=== PATIENT | female | born 1990 | race Caucasian/White ===

== ENCOUNTER 2020-07-20 19:34 | Inpatient (IN) | payer OTHER ==
[~2020-07-20] VITALS: Ht 152.4 cm; Wt 83.2 kg
--- NOTE | 2020-07-20 19:35 | NUR ---
ESPINOZA LORENZO presented to unit via wheelchair from ED, accompanied by s.o., with c/o LABOR. ESPINOZA LORENZO weighed, gowned, voided, and to bed. EFHM and TOCO applied, VS taken. ESPINOZA LORENZO oriented to bed controls, call light, TV, heat, and A/C controls.
--- NOTE | 2020-07-20 19:40 | NUR ---
Pt in BR and c/o urge to push, pt assisted back to bed and SVE performed, no cervix present with bulging membranes. 194 Dr Lopez called, and enroute. See labor notes.
[2020-07-20] MEDS ORDERED: D5 LR IV SOLUTION 1,000 ML IV ONE (19:46)
[2020-07-20] MEDS ORDERED: LIDOCAINE/EPI 2% 1:200,00 (XYLOCAINE) 10 ML VIAL ONE (19:58)
[2020-07-20] MEDS ORDERED: OXYTOCIN PRE-MIX DRIP 500 ML IV ONE ×2 (19:58→22:22)
[2020-07-20] MEDS ORDERED: D5 LR IV SOLUTION 1,000 ML IV SCH (20:30)
[2020-07-20 20:34] LABS: BASOPHILS % (AUTO) 0 % (0-10); EOSINOPHILS # (AUTO) 0.1 10^3/uL (0.0-0.3); EOSINOPHILS % (AUTO) 1 % (0-10); HEMATOCRIT 36 % (35-52); HEMOGLOBIN 12.9 g/dL (11.5-16.0); LYMPHOCYTES # (AUTO) 1.7 10^3/uL (1.0-4.0); LYMPHOCYTES % (AUTO) 16 % (12-44); MEAN CORPUSCULAR HEMOGLOBIN 32 pg (25-34); MEAN CORPUSCULAR HGB CONC 36 g/dL (32-36); MEAN CORPUSCULAR VOLUME 90 fL (80-99); MEAN PLATELET VOLUME 9.8 fL (9.0-12.2); MONOCYTES # (AUTO) 0.8 10^3/uL (0.0-1.0); MONOCYTES % (AUTO) 8 % (0-12); NEUTROPHILS # (AUTO) 7.7 10^3/uL (1.8-7.8); NEUTROPHILS % (AUTO) 75 % (42-75); PLATELET COUNT 233 10^3/uL (130-400); WHITE BLOOD COUNT 10.3 10^3/uL (4.3-11.0)
[2020-07-20 21:15] VITALS: BP 104/60
[2020-07-20] MEDS ORDERED: metroNIDAZOLE 500MG/100ML IVPB 100 ML ONE (21:57)
[2020-07-20] MEDS ORDERED: CITRIC ACID/SOB CIT (BICITRA) 30 ML UDC ONE (21:57)
[2020-07-20] MEDS ORDERED: METOCLOPRAMIDE INJ 10 MG/2 ML (REGLAN) ONE (21:57)
[2020-07-20] MEDS ORDERED: ceFAZolin 2 GM IV Premixed 50 ML ONE (21:57)
[2020-07-20] MEDS ORDERED: FAMOTIDINE 20MG/2ML IV (PEPCID) ONE (21:57)
[2020-07-20] MEDS ORDERED: CATHETER FLUSH 10 ML SYR IV SCH (22:00)
[2020-07-20] MEDS ORDERED: TERBUTALINE INJ 1 MG/ML (BRETHINE) AMP ONE (22:01)
[2020-07-20] MEDS ORDERED: ceFAZolin INJECTION 2,000 MG in WATER (STERILE) FOR INJECTION 10 ML IV ONE (22:15)
[2020-07-20] MEDS ORDERED: OXYTOCIN PRE-MIX DRIP 1,000 ML IV ONE (22:15)
[2020-07-20] MEDS ORDERED: metroNIDAZOLE 500MG/100ML IVPB 100 ML IV ONE (22:15)
[2020-07-20] MEDS ORDERED: fentaNYL INJECTION 100 MCG/2 ML AMP ONE (22:15)
--- NOTE | 2020-07-20 22:20 | History & Physical ---
History and Physical Date Seen by Provider: Jul 20, 2020 Time Seen by Provider: 22:15 This patient is a 29-year-old 2 para 1 white female who was admitted this evening in labor. She was greater than 7 cm dilated at the time of admission. Shortly thereafter she was completely dilated. She felt a strong urge to push. Amniotomy was performed and patient pushed for now about an hour and a half the presenting part is the vertex but and a right occiput transverse position and seems to be now complicated with a deep transverse arrest. She has been able to calm please no significant descent in spite of very aggressive pushing. Patient has pushing right lateral left lateral and all 4 position as well to no good effect. Patient is a point where she feels she can no longer push the pain is too intense up on her pubic bone. Decision was made to proceed with delivery. Patient does report recent onset of URI symptoms. 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 She is currently being treated as a PUI. She did have a negative rapid swab on this date This patient's has been uncomplicated and her GBS culture was negative Allergies are none Medications are vitamins HEENT exam is normal Neck is supple no lymphadenopathy no thyromegaly Abdomen is gravid soft nontender nondistended Extremities show no clubbing or cyanosis. There is no Homans' sign. Pelvic exam currently shows a cervix completely dilated 100% effaced presenting part is vertex with a ROT position at 0 to -1 station. Lab work is as follows Laboratory Tests 07/20/20 20:00 Assessment and plan term at 38-4/7 weeks gestation admitted in advanced labor. Patient has pushed for an hour and a half feels she can no longer push and has made absolutely no progress in the way of descent the entire time she been pushing. Surgery crew is in route and we will proceed with delivery patient understands and is in agreement with this plan 38-4/7 weeks gestation admitted in advanced labor Allergies and Home Medications Allergies Coded Allergies: No Known Drug Allergies (Unverified , 07/20/20) Patient Home Medication List Home Medication List Reviewed: Yes HARINDER MALDONADO MD Jul 20, 2020 22:20
[2020-07-20] MEDS ORDERED: KETOROLAC 30 MG/ML VIAL ONE (22:22)
[2020-07-20] MEDS ORDERED: MEPERIDINE (DEMEROL) INJ 50 MG/ML ONE (22:58)
[2020-07-20 23:22] VITALS: BP 108/62
[2020-07-20 23:37] VITALS: BP 115/70
[2020-07-20] MEDS ORDERED: ONDANSETRON 4 MG/2 ML (SDV) Z0FRAN ONE (23:39)
[2020-07-20] MEDS ORDERED: BUPIVACAINE 0.5% 30 ML (SENSORCAINE) VIAL ONE (23:39)
[2020-07-20] MEDS ORDERED: ONDANSETRON 4 MG/2 ML (SDV) Z0FRAN IV PRN (23:45)
[2020-07-20] MEDS ORDERED: NALOXONE 0.4 MG/ML 1 ML (NARCAN) VIAL IV PRN (23:45)
[2020-07-20] MEDS ORDERED: diphenhydrAMINE 50 MG/ML INJ (BENADRYL) IV PRN (23:45)
[2020-07-20 23:52] VITALS: BP 109/72
[2020-07-20 23:54] VITALS: BP 115/70
[2020-07-20] MEDS: KETOROLAC 30 MG/ML VIAL IVP SCH (23:55)
[2020-07-21] VITALS (8 sets, daily range): BP systolic 91–119; BP diastolic 55–78
[2020-07-21] MEDS ORDERED: ONDANSETRON 4 MG/2 ML (SDV) Z0FRAN IVP PRN
[2020-07-21] MEDS ORDERED: D5 LR IV SOLUTION 1,000 ML IV SCH
[2020-07-21] MEDS ORDERED: MEASLES,MUMPS,RUBELLA 1 EA INJ SC ONE
[2020-07-21] MEDS ORDERED: fentaNYL INJECTION 100 MCG/2 ML AMP IVP PRN
[2020-07-21] MEDS ORDERED: TETANUS,DIPTH,PERTUSS P/F (BOOSTRIX) 0.5 ML VIAL IM ONE
--- NOTE | 2020-07-21 00:22 | NUR ---
Pt to PP unit via bed from recovery (care from this rn remains the same) oriented to call system and surroundings, needs denied, bilat calf scds on and pumping, water supplied. will cont to monitor.
--- NOTE | 2020-07-21 00:39 | OPERATIVE REPORT ---
DATE OF SERVICE: 07/20/2020 PREOPERATIVE DIAGNOSIS: Term at 38+ weeks' gestation in labor with failure to progress due to deep transverse arrest. POSTOPERATIVE DIAGNOSIS: Term at 38+ weeks' gestation in labor with failure to progress due to deep transverse arrest. OPERATIVE PROCEDURE: Primary low transverse delivery of a viable female with Apgars of 8 and 9 at 1 and 5 minutes respectively, weight of 8 pounds. Cord blood gas of 7.16 and a time of 2253. OPERATIVE DESCRIPTION: With the patient in supine position under satisfactory spinal analgesia, she was prepped and draped in the usual fashion for abdominal surgery. Ozuna catheter was placed in the urinary bladder. Pfannenstiel incision was made through skin with scalpel, the patient's abdomen entered in the usual manner. Bladder retractor was placed in position. Clean scalpel was used to make a 4 cm hysterotomy incision transversely across the lower uterine segment that was extended bluntly and then a vigorous viable female was delivered via the uterine incision from a deep transverse position with a left occiput transverse. The was bulb suctioned on delivery of the head and again on completion of delivery. The umbilical cord when pulseless was doubly clamped and cut and the infant passed to the pediatric nurse in attendance for delivery. Cord bloods were obtained. The placenta delivered spontaneously Butcher. It was normal with a 3-vessel cord. The uterus was exteriorized and to wipe clean with a wet laparotomy sponge. Uterine incision closed with running locked suture of 2-0 Vicryl. Hemostasis was complete. The uterus was returned to abdominal cavity. All blood clot and debris removed from the abdominal cavity. Sponge and needle counts correct and hemostasis assured. Anterior parietal peritoneum was closed with running suture of 2-0 Vicryl. Rectus muscles were closed with that suture as well. The rectus fascia was closed with 2-0 Vicryl, subcutaneous tissue was closed with 2-0 Vicryl and the skin was stapled. Sponge and needle counts were correct on completion of the procedure. Blood loss was around 500 mL. The patient tolerated the procedure well and was transferred to recovery room in stable condition. The had remained with the mom. Job ID: [id number] DocumentID: [id number] Dictated Date: 07/20/2020 23:27:58 Finishing Frame Runner Date: 07/21/2020 00:38:37 Dictated By: HARINDER MALDONADO MD
[2020-07-21] MEDS ORDERED: METOCLOPRAMIDE INJ 10 MG/2 ML (REGLAN) IV ONE (01:30)
[2020-07-21] MEDS ORDERED: CITRIC ACID/SOB CIT (BICITRA) 30 ML UDC PO ONE (01:30)
[2020-07-21] MEDS ORDERED: FAMOTIDINE 20MG/2ML IV (PEPCID) IV ONE (01:30)
[2020-07-21] MEDS ORDERED: OXYTOCIN PRE-MIX DRIP 500 ML IV SCH ×2 (01:45)
--- NOTE | 2020-07-21 02:00 | NUR ---
Report from Luis Tan RN.
[2020-07-21] MEDS: KETOROLAC 30 MG/ML VIAL IVP SCH (05:32)
--- NOTE | 2020-07-21 05:40 | NUR ---
Pt ambulates to bathroom with + void, no s/s of distress. Moderate rubra lochia, no clots expressed. IV dc'd per dr order. Dressing removed per order, incision JOSSUE with moi, no bleeding or drainage.
--- NOTE | 2020-07-21 07:21 | Anesthesia-Regional Post-Op ---
Regional Patient Condition Mental Status: Alert, Oriented x3 Circulation: Same as Pre-Op Headache: Absent Sensation: Full Recovery Motor Block: Absent Post Op Complications Complications None Follow Up Care/Instructions Patient Instructions None needed. Anesthesia/Patient Condition Patient is doing well, no complaints, stable vital signs, no apparent adverse anesthesia problems. No complications reported per nursing. ALEXYS PAYAN CRNA Jul 21, 2020 07:21
--- NOTE | 2020-07-21 08:04 | Progress Note ---
Standard Progress Note Progress Notes/Assess & Plan Date Seen by a Provider: Jul 21, 2020 Time Seen by a Provider: 08:01 Progress/Assessment & Plan This patient is without complaint. She is ambulating, voiding, tolerating oral intake well and has good pain control. Patient denies chest pain, denies shortness of breath, denies nausea vomiting, and denies headache. Vital Signs 07/21/20 05:40 Temp 36.9 Pulse 88 Resp 16 B/P (MAP) 112/56 (74) Pulse Ox 96 O2 Delivery Room Air Vital signs are stable. Patient is afebrile. Physical exam is deferred / PATIENT IS PUI Assessment and plan postoperative day #1 status post primary d ada doing well. Plan is for routine convalescent care Final Diagnosis 38-week primary delivery HARINDER MALDONADO MD Jul 21, 2020 08:04
[2020-07-21] MEDS ORDERED: IBUP-1780 PO (08:10)
[2020-07-21] MEDS ORDERED: OXYC1TAB12 PO (08:10)
[2020-07-21] MEDS ORDERED: DCS100C PO (08:10)
--- NOTE | 2020-07-21 08:10 | Discharge Inst-Surgical ---
Discharge Inst-Surgical Depart Medication/Instructions New, Converted or Re-Newed RX: RX on Chart Consults/Follow Up Patient Instructions: As directed Orders & Referrals Follow Up Appt: RTC 1 week for incision check. Call to make follow up appt. for patient in 4 weeks. Wound Care: Remove moi, apply benzoin and steri strips. Activity Per routine post instructions. Please call in RX to patient pharmacy. Diet as tolerated Patient may shower or tub bathe as desired. Continue home meds Activity Activity as Tolerated: No Diet Discharge Diet: No Restrictions HARINDER MALDONADO MD Jul 21, 2020 08:10
[2020-07-21] MEDS: DOCUSATE SODIUM 100 MG (COLACE) CAP PO SCH ×2 (08:12→20:58)
[2020-07-21] MEDS: oxyCODONE/APAP 10/325MG (PERCOCET 10) TABLET PO PRN ×2 (08:13→18:23)
--- NOTE | 2020-07-21 08:19 | NUR ---
AM shift assessment completed and vital signs obtained, see interventions. Plan of care reviewed with patient, patient verbalizes understanding and questions answered. Scheduled Colace PO given along with Percocet 2 PO for patient's c/o pain rated 8/10. Abdominal binder applied for patient's comfort. Shower supplies provided. Patient denies any further questions or concerns at this time. COVID results pending.
[2020-07-21] MEDS ORDERED: DOCUSATE SODIUM 100 MG (COLACE) CAP PO SCH (09:00)
--- NOTE | 2020-07-21 09:00 | NUR ---
Patient reports that occupational health called with COVID results and they were NEGATIVE.
[2020-07-21] MEDS: IBUPROFEN 800 MG (MOTRIN) TAB PO SCH ×3 (12:28→22:44)
--- NOTE | 2020-07-21 13:05 | NUR ---
Report from Selvin Deutsch RN
--- NOTE | 2020-07-21 17:45 | NUR ---
To room for scheduled motrin. Pt requesting abd. binder and extra infant wipes, provided at this time. VSS. No further needs or requests.
[2020-07-22] MEDS: oxyCODONE/APAP 10/325MG (PERCOCET 10) TABLET PO PRN ×3 (01:08→13:28)
[2020-07-22 05:35] VITALS: BP 92/53
[2020-07-22] MEDS: IBUPROFEN 800 MG (MOTRIN) TAB PO SCH ×2 (05:35→11:59)
--- NOTE | 2020-07-22 07:37 | Progress Note ---
Standard Progress Note Progress Notes/Assess & Plan Date Seen by a Provider: Jul 22, 2020 Time Seen by a Provider: 07:35 Progress/Assessment & Plan This patient is without complaint. She is ambulating, voiding, tolerating oral intake well and has good pain control. Patient denies chest pain, denies shortness of breath, denies nausea vomiting, and denies headache. Vital Signs 07/21/20 05:40 Temp 36.9 Pulse 88 Resp 16 B/P (MAP) 112/56 (74) Pulse Ox 96 O2 Delivery Room Air Vital signs are stable. Patient is afebrile. Physical exam is deferred / PATIENT IS PUI Assessment and plan postoperative day #1 status post primary d ada doing well. Plan is for routine convalescent care July 22, 2020 Patient is without complaint. She is ambulating, voiding, tolerating oral intake well and has good pain control. Patient is requesting discharge home. Vital Signs Date Time Temp Pulse Resp B/P (MAP) Pulse Ox O2 Delivery O2 Flow Rate FiO2 07/22/20 05:35 36.4 76 18 92/53 (66) 98 Room Air 07/21/20 22:44 36.3 82 18 91/55 (67) 98 Room Air 07/21/20 17:44 36.8 81 18 111/67 (82) 98 Room Air 07/21/20 12:25 36.5 96 16 113/68 (83) 95 Room Air 07/21/20 08:19 37.3 82 16 108/63 (78) 98 Room Air I & O 07/22/20 07:00 Intake Total 3000 ml Balance 3000 ml Vital signs are stable. Patient is afebrile. The abdomen is benign. The fundus is firm below the umbilicus and nontender. The surgical incision is clean dry and intact. Extremities show no clubbing or cyanosis. There is no Homans' sign. Assessment and plan postoperative day #2 status post primary delivery at 38+ weeks gestation plan is for discharge home with follow-up in clinic Final Diagnosis 38-week primary delivery HARINDER MALDONADO MD Jul 22, 2020 07:37
[2020-07-22 11:56] VITALS: BP 91/54
--- NOTE | 2020-07-22 13:40 | NUR ---
Thorofare removed from incision. Steristrips applied. One small spot oozing bright red blood in center bottom of incision, but no active bleeding noted. Pt tolerates procedure well. Pt assisted with abd. binder application following. Pt denies further needs or concerns at this time.
--- NOTE | 2020-07-22 14:15 | NUR ---
Discharge instructions given to pt with copy provided to pt along with narcotic prescriptions. Other scripts to be called to [facility] pharmacy per pt request. Pt notified of follow up appt. Pt verbalizes understanding of instructions and signs to verify. Denies questions or concerns at this time.
--- NOTE | 2020-07-22 15:40 | NUR ---
Pt ambulates off unit to private vehicle with all personal belongings, accompanied by RN, S.O., and . No s/s of distress noted.
== END 2020-07-22 15:40 | disposition home or self-care (01) | DRG 788 ==
LOC: WSo 19:34 → LDRP 19:35 → WSo 21:51 → LDRP 07-21 02:12
PROVIDERS: ADMIT Obstetrics & Gynecology; ATTEND Obstetrics & Gynecology
PROC: 10D00Z1 Extraction of Products of Conception, Low, Open Approach (ICD-10-PCS; principal; 2020-07-21)
DX: O64.0XX0 Obstructed labor due to incomplete rotation of fetal head, not applicable or unspecified (principal); Z3A.38 38 weeks gestation of pregnancy; Z37.0 Single live birth; Z20.822 Contact with and (suspected) exposure to COVID-19
CPT/HCPCS: 36415; 85025; 86780; 86850; 86900; 86901; 99212